=== PATIENT | female | born 1980 | race Caucasian/White ===

== ENCOUNTER → 2017-04-10 | Outpatient (CLI) | payer OTHER ==
[~2017-04-10] MED LIST: HYDR200T42 PO; METO5TAB PO; PROT40TA PO; ZOFR4TAB3 SL
--- NOTE | 2017-04-10 11:51 | RADRPT ---
EXAM DATE/TIME: 04/10/2017 11:00 [place] COMPARISON: No previous studies available for comparison. INDICATIONS : Chest pressure and heaviness for 1 week. MEDICAL HISTORY : Lupus. SURGICAL HISTORY : None. ENCOUNTER: Initial ACUITY: 1 week PAIN SCORE: 0/10 LOCATION: Bilateral chest FINDINGS: PA and lateral views of the chest demonstrate the lungs to be symmetrically aerated without evidence of mass, infiltrate or effusion. The cardiomediastinal contours are unremarkable. Osseous structure s are intact. CONCLUSION: No acute intrathoracic disease. Rudy Zimmer MD on April 10, 2017 at 11:49 Board Certified Radiologist. This report was verified electronically.
--- NOTE | 2017-04-15 09:58 | RSPPFT ---
DATE OF PROCEDURE: 04/10/17 COMMENTS: VOLUMES DYNAMIC: FVC and FEV1 normal. STATIC: RV, TLC and FRC normal. FLOWS: FEV1% and FEF 25-75 normal. DIFFUSION: Normal. FLOW VOLUME LOOP: Normal configuration. IMPRESSION: Normal pulmonary functions with no significant airways obstruction or restriction, normal diffusion and no improvement post-bronchodilator.
== END ==
LOC: HRSP 10:13
PROVIDERS: ATTEND Internal Medicine Rheumatology
DX: R06.00 Dyspnea, unspecified (principal)
CPT/HCPCS: 71020; 94060; 94726; 94729